=== PATIENT | female | born 1960 | race Caucasian/White ===

== ENCOUNTER 2023-09-03 15:06 | Outpatient (CLI) | payer OTHER | END 2023-09-03 15:07 | disposition home or self-care (01) | LOC: CSHMAMMO 15:06 | PROVIDERS: ATTEND Internal Medicine | DX: Z12.31 Encounter for screening mammogram for malignant neoplasm of breast (principal); Z98.82 Breast implant status | CPT/HCPCS: 77063; 77067 ==